=== PATIENT | female | born 1985 | race Caucasian/White ===

== ENCOUNTER 2017-04-08 19:58 | Emergency (ER) | payer BC, OTHER ==
[~2017-04-08] VITALS: Ht 170.2 cm; Wt 52.2 kg
[~2017-04-08 19:58] MED LIST: CYCLOBENZAPRINE5 MG PO; IBUPROFEN 600600 M1 PO; NOHOMEMEDICATIONS; NORCO 5-325 TA1 EACH PO
[2017-04-08] MEDS ORDERED: CLEOCIN HCL150 MG PO (20:43)
[2017-04-08 22:04] VITALS: BP 122/81
[2017-04-08] MEDS ORDERED: HYDROCODONE-AP1 EAC6 PO (22:05)
== END 2017-04-08 22:05 | disposition home or self-care (01) ==
LOC: ER 19:58
DX: M27.2 Inflammatory conditions of jaws (principal); G43.909 Migraine, unspecified, not intractable, without status migrainosus; F17.210 Nicotine dependence, cigarettes, uncomplicated; Z86.2 Personal history of diseases of the blood and blood-forming organs and certain disorders involving the immune mechanism; Z88.1 Allergy status to other antibiotic agents